=== PATIENT | female | born 1960 | race Caucasian/White ===

== ENCOUNTER 2017-03-08 11:39 | Day surgery (SDC) | payer OTHER ==
[~2017-03-08] VITALS: Ht 152.4 cm; Wt 72.8 kg
[2017-03-08] MEDS ORDERED: PROPOFOL 40 ML ONE (14:08)
[2017-03-08] MEDS ORDERED: MIDAZOLAM 1 MG/ML 2 ML INJ ONE (14:08)
[2017-03-08 14:12] VITALS: BP 121/58; PULSE 57; RESP 16
--- NOTE | 2017-03-11 17:23 | OPR ---
Date/Time of Note Date/Time of Note DATE: 03/08/17 Operative Report Preoperative Diagnosis * Colorectal cancers screening Postoperative Diagnosis Impression: * Normal colonic mucosa to cecum * Moderate-sized internal hemorrhoids Plan: * High-fiber diet * Annual Hemoccult stool testing * Colonoscopy in 10 years . Operation/Procedure Performed * Colonoscopy Surgeon: YUNIEL CHAPMAN MD Anesthesia: MAC Estimated Blood Loss: none Specimens * None Grafts/Implants * None Complications: None YUNIEL CHAPMAN MD Mar 11, 2017 17:22
== END 2017-03-08 18:03 | disposition home or self-care (01) ==
LOC: GIL 11:39
PROVIDERS: ATTEND Internal Medicine Gastroenterology
DX: Z12.11 Encounter for screening for malignant neoplasm of colon (principal)
CPT/HCPCS: 45378; J2250